=== PATIENT | male | born 1960 | race Caucasian/White ===

== ENCOUNTER 2020-10-31 11:02 | Day surgery (SDC) | payer BC ==
[~2020-10-31] VITALS: Ht 182.9 cm; Wt 105.2 kg
[~2020-10-31 11:02] MED LIST: ALLO100 PO; ASPI81CH PO; HYDACE5 PO; Mobic15 MG PO; NAPR500 PO; OLME20 PO; Omeprazole20 M1 PO; PRED20 PO
--- NOTE | 2020-10-31 11:57 | NUR ---
Ambulatory in Day Surgery History, Chart, Medications and Allergies reviewed before start of procedure. Lungs clear T/O to Auscultation. Patient confirms NPO status and agrees with scheduled surgery. Pre-Op teaching done. Pt verbalizes understanding. Patient States Post-Procedure ride home has been arranged.
--- NOTE | 2020-10-31 15:11 | NUR ---
1500-assumed care of patient. incisions x3 well sealed. pt denies pain or nausea. good db/cough effort with encouragement
--- NOTE | 2020-10-31 16:41 | NUR ---
Patient up to Ambulate independently. Gait steady. Discharge instructions reviewed with patient. Patient verbalizes understanding. Copy given to patient to take home. Discharged via wheelchair to private car for ride home WITH SPOUSE.
--- NOTE | 2020-10-31 16:42 | NUR ---
PATIENT SENT WITH ICE BAG AND INSTRUCTIONS, TESTICULAR SUPPORT, TOLERATING PO WELL. PAIN WELL CONTROLED. MEDICATED WITH [facility] TO ALLOW PATIETN TO DINING ROOM HOST/HOSTESS SCRIPT AT PHARMACY.
== END 2020-10-31 23:09 | disposition home or self-care (01) ==
LOC: ORSCMMR 11:02 → ORD 12:45 → ORSCMMR 23:09
PROVIDERS: Surgery
PROC: 0YU54JZ Supplement Right Inguinal Region with Synthetic Substitute, Percutaneous Endoscopic Approach (ICD-10-PCS; principal; 2020-10-31 12:45)
PROC: 8E0W4CZ Robotic Assisted Procedure of Trunk Region, Percutaneous Endoscopic Approach (ICD-10-PCS; principal; 2020-10-31 12:45)
DX: K40.90 Unilateral inguinal hernia, without obstruction or gangrene, not specified as recurrent (principal); I10 Essential (primary) hypertension; E11.9 Type 2 diabetes mellitus without complications; Z79.899 Other long term (current) drug therapy; Z79.82 Long term (current) use of aspirin
CPT/HCPCS: 49650; S2900; A9270; C1781; J0690; J1100; J1885; J2250; J2405; J2704; J2710; J3010; J7120